=== PATIENT | male | born 1940 | race Two or more races ===

== ENCOUNTER → 2017-10-20 | Emergency (ER) | payer OTHER ==
[~2017-10-20] VITALS: Ht 165.1 cm; Wt 68.9 kg
== END | disposition home or self-care (01) ==
LOC: ER 06:09
DX: R21 Rash and other nonspecific skin eruption (principal)

== ENCOUNTER 2023-05-21 23:39 | Emergency (ER) | payer OTHER ==
[~2023-05-21] VITALS: Ht 165.1 cm; Wt 70.8 kg
[2023-05-22 03:33] LABS: ABG PH 7.436 (7.35-7.45); ABG PO2 93.4 mmHg (80-100); ABG pCO2 35.5 mmHg (35-45); BASE EXCESS -0.3 mmol/l; BICARBONATE 23.4 mmol/l (23-25); SaO2 97.5 %; Tco2 24.4 mmol/l
[2023-05-22 03:39] LABS: allen test SATISFACTORY; o2 21 %; puncture site RADIAL LEFT
[2023-05-22 03:41] LABS: URINE APPEARANCE Clear; URINE BILIRRUBIN Negative (NEGATIVE); URINE BLOOD Trace; URINE COLOR Yellow; URINE GLUCOSE Negative (NEGATIVE); URINE LEUKOCYTE Negative; URINE NITRATE Negative; URINE PROTEIN Negative (NEGATIVE); URINE UROBILINOGEN 0.2 E.U./dl
[2023-05-22 03:42] LABS: HEMATOCRIT 37.5 % (39.0-48.0); HEMOGLOBIN 12.4 g/dL (13-16.00); MEAN CELL VOLUME 95.5 fL (80.0-100.00); MEAN CORPUSCULAR HEMOGLOBIN 31.7 pg (27.00-32.0); MEAN CORPUSCULAR HGB CONC 33.2 g/dl (32.0-36.0); PLATELET COUNT 131 K/uL (150-450); RED BLOOD COUNT 3.92 M/uL (4.00-6.00); RED CELL DISTRIBUTION WIDTH 13.4 % (11.5-14.5)
[2023-05-22 03:43] LABS: URINE RBC 25.8 uL (0.0-20.8)
[2023-05-22 03:45] LABS: URINE BACTERIA 0 uL (0.0-1933); URINE EPITHELIAL CELLS 0.3 uL (0.0-38.8); URINE WBC 0.6 uL (0.0-23.2)
[2023-05-22 04:03] LABS: ALBUMIN 3.2 gm/dL (3.4-5.0); BILIRUBIN TOTAL 0.64 mg/dL (0.3-1.2); CALCIUM 8.3 mg/dL (8.5-10.1); CREATININE SERUM 1.13 mg/dL (0.70-1.30); GFR 61.67; GLOBULINA 3.9 G/DL (2.4-3.5); POTASSIUM 4.69 mEq/L (3.5-5.1); TOTAL PROTEIN 7.1 gm/dL (6.4-8.2)
[2023-05-22] MEDS ORDERED: ZYNCOF 20-400120 ML PO (08:29)
[2023-05-22] MEDS ORDERED: ALBUTEROL2.5 MG/3 M IH (08:29)
[2023-05-22] MEDS ORDERED: SYMBICORT 16010.2 GM IH (08:29)
[2023-05-22] MEDS ORDERED: ZITHROMAX500 MG PO (08:29)
== END 2023-05-22 08:47 | disposition home or self-care (01) ==
LOC: ER 23:39
PROVIDERS: General Practice
DX: J45.909 Unspecified asthma, uncomplicated (principal); Z20.822 Contact with and (suspected) exposure to COVID-19
CPT/HCPCS: 36415; 71046; 82803; 94640; 96365; 96372; 99284; J2930; J3490

== ENCOUNTER 2023-08-10 10:23 | Emergency (ER) | payer OTHER ==
[~2023-08-10] VITALS: Ht 165.1 cm; Wt 68.9 kg
[~2023-08-10 10:23] MED LIST: ALBUTEROL2.5 MG/3 M IH; SYMBICORT 16010.2 GM IH; ZITHROMAX500 MG PO; ZYNCOF 20-400120 ML PO
== END 2023-08-10 14:00 ==
LOC: ER 10:24
DX: K05.10 Chronic gingivitis, plaque induced (principal)